=== PATIENT | male | born 1970 | race Caucasian/White ===

== ENCOUNTER 2018-09-14 14:26 | Emergency (ER) | payer SELFPAY ==
--- NOTE | 2018-09-14 14:46 | UC ---
Skin Complaint HPI - HPI Summary HPI Summary: tick behind left knee--if thinks it was there for about 24 hours+- removed this morning by patient - History of Current Complaint Chief Complaint: UCSkin Time Seen by Provider: 09/14/18 14:45 Stated Complaint: TICK BITE TO LT LEG Hx Obtained From: Patient Onset/Duration: Sudden Onset, Still Present Skin Exposure Onset/Duration: Days Ago - 1 Timing: Constant Current Severity: None Location: Discrete Aggravating Factor(s): Nothing Alleviating Factor(s): Nothing Associated Signs & Symptoms: Positive: Negative Related History: Insect Bite/Sting - Allergy/Home Medications Allergies/Adverse Reactions: Allergies Allergy/AdvReac Type Severity Reaction Status Date / Time erythromycin base Allergy Unknown Verified 09/14/18 14:48 Reaction Details PMH/Surg Hx/FS Hx/Imm Hx Previously Healthy: Yes - Family History Known Family History: Positive: None - Social History Occupation: Works From/At Home Lives: With Family Alcohol Use: None Substance Use Type: None Smoking Status (MU): Never Smoked Tobacco Have You Smoked in the Last Year: No - Immunization History Hx Tetanus, Diphtheria Vaccination: No Review of Systems All Other Systems Reviewed And Are Negative: Yes Constitutional: Positive: Negative Skin: Positive: Other - tick bite behind left knee Eyes: Positive: Negative ENT: Positive: Negative Respiratory: Positive: Negative Cardiovascular: Positive: Negative Gastrointestinal: Positive: Negative Genitourinary: Positive: Negative Motor: Positive: Negative Neurovascular: Positive: Negative Musculoskeletal: Positive: Negative Neurological: Positive: Negative Psychological: Positive: Negative Is Patient Immunocompromised?: No Physical Exam Triage Information Reviewed: Yes Appearance: Well-Appearing, No Pain Distress, Well-Nourished Vital Signs Reviewed: Yes Eye Exam: Normal Eyes: Positive: Conjunctiva Clear ENT Exam: Normal ENT: Positive: Normal ENT inspection. Negative: Trismus, Muffled voice, Hoarse voice Dental Exam: Normal Neck exam: Normal Neck: Positive: Supple, Nontender Respiratory Exam: Normal Respiratory: Positive: Chest non-tender, No respiratory distress, No accessory muscle use Cardiovascular Exam: Normal Cardiovascular: Positive: RRR, Pulses Normal, Brisk Capillary Refill Musculoskeletal Exam: Normal Musculoskeletal: Positive: Strength Intact, ROM Intact, No Edema Neurological Exam: Normal Neurological: Positive: Alert, Muscle Tone Normal Psychological Exam: Normal Skin: Positive: Other - tick bit behind left knee Course/Dx - Course Course Of Treatment: education and information provided for patient regarding hypertension and insurance options---patient will take doxycycline one time dose and follow with [facility] for bp management and assistance getting health care insurance - Diagnoses Provider Diagnosis: Hypertension, Tick bite, Recently in Lyme disease endemic area Discharge - Sign-Out/Discharge Documenting (check all that apply): Patient Departure All imaging exams completed and their final reports reviewed: No Studies - Discharge Plan Condition: Stable Disposition: HOME Prescriptions: DOXYcycline CAP(*) [DOXYcycline 100MG CAP(*)] 200 mg PO DAILY #2 cap Patient Education Materials: Lyme Disease (ED), Tick Bite (ED), DASH Eating Plan (ED), Hypertension (ED) Referrals: [facility] [Outside] - 7 Days (to get blood pressure rechecked and assistance with medications and treatment) - Billing Disposition and Condition Condition: STABLE Disposition: Home - Attestation Statements Provider Attestation: I was available for consult. This patient was seen by the REGI. The patient was not presented to , seen by or examined by -Leticia Lorenzo MD
== END 2018-09-14 15:21 | disposition home or self-care (01) ==
LOC: UCEAST 14:26
DX: T63.481A Toxic effect of venom of other arthropod, accidental (unintentional), initial encounter (principal); Y92.9 Unspecified place or not applicable; A69.20 Lyme disease, unspecified; I10 Essential (primary) hypertension
CPT/HCPCS: 99202; G0463

== ENCOUNTER 2019-12-17 10:51 | Inpatient (IN) ==
[2019-12-17 12:46] LABS: ALT 16 U/L (7-52); AST 23 U/L (13-39); Albumin 3.9 g/dL (3.2-5.2); Albumin/Globulin Ratio 1.4 (1-3); Alkaline Phosphatase 151 U/L (34-104); Anion Gap 11 mmol/L (2-11); BUN/Creatinine Ratio 11.5 (8-20); Blood Urea Nitrogen 13 mg/dL (6-24); CO2 Carbon Dioxide 31 mmol/L (22-32); Calcium 8.6 mg/dL (8.6-10.3); Chloride 99 mmol/L (101-111); EGFR African American 83.8 (>60); EGFR Non-African American 69.3 (>60); Globulin 2.7 g/dL (2-4); Glucose 95 mg/dL (70-100); Potassium 3.1 mmol/L (3.5-5.0); Sodium 141 mmol/L (135-145); Total Protein 6.6 g/dL (6.4-8.9)
[2019-12-17 13:06] LABS: C Reactive Protein 36.24 mg/L (<8.01)
[2019-12-17 13:13] LABS: ABS Basophils 0.1 10^3/ul (0-0.2); ABS Lymphocytes 0.8 10^3/ul (1.0-4.8); ABS Monocytes 1.1 10^3/ul (0-0.8); Eosinophil % 10.4 %; Hematocrit 47 % (42-52); Lymphocyte % 7.6 %; Mean Corpuscular HGB Conc 32 g/dL (31-36); Mean Corpuscular Hemoglobin 28 pg (27-31); Mean Corpuscular Volume 87 fL (80-94); Mean Platelet Volume 8.1 fL (7.4-10.4); Nucleated Red Blood Cells % 0.1; Platelet Count 361 10^3/uL (150-450); Red Blood Count 5.47 10^6 /uL (4.18-5.48); Red Cell Distribution Width 19 % (10-15)
[2019-12-17 13:37] LABS: Magnesium 1.7 mg/dL (1.9-2.7)
[2019-12-17] MEDS ORDERED: Furosemide 40 mg/4 ml IV VIAL IV ONE (13:45)
[2019-12-17] MEDS ORDERED: Magnesium Sulfate IV 1GM/100ML 1 GM/100 ML BAG IV ONE (13:52)
[2019-12-17] MEDS ORDERED: Potassium Chlor 20 meq TAB.ER PO ONE (13:52)
[2019-12-17] MEDS ORDERED: Potassium Chlor 20 meq TAB.ER PO SCH (14:00)
[2019-12-17] MEDS ORDERED: Magnesium Sulfate 2 gm BAG 2 GM/50 ML BAG IVPB ONE (14:00)
[2019-12-17 14:07] LABS: Troponin I 0.06 ng/mL (<0.03)
[2019-12-17] MEDS ORDERED: Perflutren Lipid Microsphere 3 ML VIAL ONE (15:02)
[2019-12-17 15:08] LABS: Urine Appearance Clear; Urine Bilirubin Negative (Negative); Urine Blood Negative (Negative); Urine Color Colorless; Urine Glucose Negative (Negative); Urine Ketones Negative (Negative); Urine Nitrite Negative (Negative); Urine Protein Negative (Negative); Urine Specific Gravity 1.003 (1.010-1.030); Urine Urobilinogen Negative (Negative)
[2019-12-17] MEDS: Enoxaparin 40 MG/0.4 ML SYR SUBCUT SCH (16:13)
[2019-12-17] MEDS: hydrALAZINE 20 mg/ml 1 ML Vial IV IV SLOW PU PRN ×2 (16:15→23:15)
[2019-12-17 18:07] LABS: Troponin I 0.05 ng/mL (<0.03)
[2019-12-17] MEDS ORDERED: Furosemide 40 mg/4 ml IV VIAL IV SCH (21:00)
[2019-12-17] MEDS: Nystatin TOP POWDER 15 GM BTL TOPICAL SCH (22:20)
[2019-12-18 06:36] LABS: ABS Basophils 0.1 10^3/ul (0-0.2); ABS Eosinophils 0.9 10^3/ul (0-0.6); ABS Lymphocytes 0.5 10^3/ul (1.0-4.8); ABS Neutrophils 6.7 10^3/ul (1.5-7.7); Eosinophil % 10.1 %; Hematocrit 46 % (42-52); Hemoglobin 15.3 g/dL (14.0-18.0); Lymphocyte % 5.8 %; Mean Corpuscular HGB Conc 33 g/dL (31-36); Mean Corpuscular Hemoglobin 29 pg (27-31); Mean Corpuscular Volume 86 fL (80-94); Mean Platelet Volume 7.6 fL (7.4-10.4); Platelet Count 326 10^3/uL (150-450); Red Blood Count 5.36 10^6 /uL (4.18-5.48); Red Cell Distribution Width 19 % (10-15); White Blood Count 9.3 10^3/uL (3.5-10.8)
[2019-12-18 06:52] LABS: BUN/Creatinine Ratio 10.1 (8-20); Calcium 9.1 mg/dL (8.6-10.3); EGFR African American 87.4 (>60); EGFR Non-African American 72.2 (>60); Magnesium 1.8 mg/dL (1.9-2.7); Potassium 3.3 mmol/L (3.5-5.0)
[2019-12-18] MEDS ORDERED: Potassium Chlor 20 meq TAB.ER PO ONE (08:30)
[2019-12-18] MEDS ORDERED: Magnesium Sulfate IV 1GM/100ML 1 GM/100 ML BAG IV ONE (09:00)
[2019-12-18] MEDS: Furosemide 40 mg/4 ml IV VIAL IV SCH ×2 (09:32→15:16)
[2019-12-18] MEDS: Nystatin TOP POWDER 15 GM BTL TOPICAL SCH ×2 (11:20→21:09)
[2019-12-18] MEDS: Enoxaparin 40 MG/0.4 ML SYR SUBCUT SCH (15:16)
[2019-12-19] MEDS ORDERED: Furosemide 20 mg/2 ml IV VIAL IV SLOW PU ONE (08:39)
[2019-12-19] MEDS: Furosemide 40 mg/4 ml IV VIAL IV SCH ×2 (08:40→15:32)
[2019-12-19] MEDS ORDERED: Potassium Chlor 20 meq TAB.ER PO SCH (09:00)
[2019-12-19] MEDS: Nystatin TOP POWDER 15 GM BTL TOPICAL SCH ×2 (09:13→22:01)
[2019-12-19 10:15] LABS: ABS Basophils 0.1 10^3/ul (0-0.2); ABS Eosinophils 1.4 10^3/ul (0-0.6); ABS Lymphocytes 0.6 10^3/ul (1.0-4.8); ABS Monocytes 0.7 10^3/ul (0-0.8); Eosinophil % 15.7 %; Hematocrit 47 % (42-52); Hemoglobin 15.3 g/dL (14.0-18.0); Lymphocyte % 6.7 %; Mean Corpuscular HGB Conc 32 g/dL (31-36); Mean Corpuscular Hemoglobin 28 pg (27-31); Mean Corpuscular Volume 86 fL (80-94); Mean Platelet Volume 7.6 fL (7.4-10.4); Platelet Count 329 10^3/uL (150-450); Red Cell Distribution Width 19 % (10-15); White Blood Count 8.7 10^3/uL (3.5-10.8)
[2019-12-19 10:35] LABS: BUN/Creatinine Ratio 11.9 (8-20); Calcium 9.3 mg/dL (8.6-10.3); EGFR African American 87.4 (>60); EGFR Non-African American 72.2 (>60); Magnesium 1.6 mg/dL (1.9-2.7); Potassium 3.2 mmol/L (3.5-5.0)
[2019-12-19] MEDS: Enoxaparin 40 MG/0.4 ML SYR SUBCUT SCH (15:32)
[2019-12-19] MEDS ORDERED: Magnesium Sulfate 2 gm BAG 2 GM/50 ML BAG IVPB ONE (15:33)
[2019-12-19] MEDS: Potassium Chlor 20 meq TAB.ER PO SCH (15:49)
[2019-12-20] MEDS: Potassium Chlor 20 meq TAB.ER PO SCH (08:07)
[2019-12-20] MEDS: Furosemide 40 mg/4 ml IV VIAL IV SCH ×2 (08:08→15:03)
[2019-12-20] MEDS: Nystatin TOP POWDER 15 GM BTL TOPICAL SCH ×2 (08:08→20:57)
[2019-12-20 09:48] LABS: ABS Basophils 0.1 10^3/ul (0-0.2); ABS Eosinophils 1.3 10^3/ul (0-0.6); ABS Lymphocytes 0.7 10^3/ul (1.0-4.8); ABS Monocytes 0.7 10^3/ul (0-0.8); Eosinophil % 14.6 %; Hematocrit 46 % (42-52); Hemoglobin 15.4 g/dL (14.0-18.0); Lymphocyte % 8.1 %; Mean Corpuscular HGB Conc 33 g/dL (31-36); Mean Corpuscular Hemoglobin 29 pg (27-31); Mean Corpuscular Volume 86 fL (80-94); Mean Platelet Volume 7.8 fL (7.4-10.4); Platelet Count 357 10^3/uL (150-450); Red Blood Count 5.42 10^6 /uL (4.18-5.48); Red Cell Distribution Width 19 % (10-15); White Blood Count 8.8 10^3/uL (3.5-10.8)
[2019-12-20 10:05] LABS: BUN/Creatinine Ratio 15.2 (8-20); Calcium 9.4 mg/dL (8.6-10.3); EGFR African American 97.6 (>60); EGFR Non-African American 80.7 (>60); Magnesium 1.6 mg/dL (1.9-2.7); Potassium 3.4 mmol/L (3.5-5.0)
[2019-12-20] MEDS ORDERED: Magnesium Sulfate 2 gm BAG 2 GM/50 ML BAG IVPB ONE (10:11)
[2019-12-20] MEDS: Enoxaparin 40 MG/0.4 ML SYR SUBCUT SCH (15:03)
[2019-12-21 06:53] LABS: CO2 Carbon Dioxide 28 mmol/L (22-32); Chloride 94 mmol/L (101-111); Sodium 133 mmol/L (135-145)
[2019-12-21 06:56] LABS: Anion Gap 11 mmol/L (2-11)
[2019-12-21 06:58] LABS: BUN/Creatinine Ratio 17.6 (8-20); Blood Urea Nitrogen 18 mg/dL (6-24); EGFR African American 94.3 (>60); Glucose 93 mg/dL (70-100)
[2019-12-21] MEDS ORDERED: Regadenoson 0.4 MG/5 ML SYRINGE ONE (07:52)
[2019-12-21] MEDS ORDERED: Aminophylline 25 MG/ML VIAL ONE (07:53)
[2019-12-21] MEDS: Furosemide 40 mg/4 ml IV VIAL IV SCH ×2 (10:39→14:56)
[2019-12-21] MEDS: Potassium Chlor 20 meq TAB.ER PO SCH (10:40)
[2019-12-21] MEDS: Nystatin TOP POWDER 15 GM BTL TOPICAL SCH ×2 (10:40→21:01)
[2019-12-21 11:15] LABS: Potassium 3.8 mmol/L (3.5-5.0)
[2019-12-21] MEDS: Enoxaparin 40 MG/0.4 ML SYR SUBCUT SCH (14:56)
[2019-12-22 06:10] LABS: BUN/Creatinine Ratio 16.8 (8-20); Calcium 9.6 mg/dL (8.6-10.3); EGFR African American 89.3 (>60); EGFR Non-African American 73.8 (>60); Potassium 3.6 mmol/L (3.5-5.0)
[2019-12-22] MEDS: Potassium Chlor 20 meq TAB.ER PO SCH (07:58)
[2019-12-22] MEDS: Furosemide 40 mg/4 ml IV VIAL IV SCH (08:03)
[2019-12-22] MEDS: Nystatin TOP POWDER 15 GM BTL TOPICAL SCH ×2 (08:08→20:43)
[2019-12-22 08:30] LABS: Magnesium 1.9 mg/dL (1.9-2.7)
[2019-12-22 09:04] LABS: HDL Cholesterol 22.8 mg/dL
[2019-12-22 09:42] LABS: Albumin 4.1 g/dL (3.2-5.2); Albumin/Globulin Ratio 1.3 (1-3); BUN/Creatinine Ratio 15.9 (8-20); Calcium 10.2 mg/dL (8.6-10.3); EGFR African American 89.3 (>60); EGFR Non-African American 73.8 (>60); Globulin 3.1 g/dL (2-4); Potassium 3.8 mmol/L (3.5-5.0); Total Bilirubin 1.6 mg/dL (0.2-1.0); Total Protein 7.2 g/dL (6.4-8.9)
[2019-12-22] MEDS: Enoxaparin 40 MG/0.4 ML SYR SUBCUT SCH (15:48)
[2019-12-22] MEDS: Bumetanide IV 0.25 MG/ML 4 ml VIAL (1 mg) SLOW PUSH SCH ×2 (16:55→20:39)
[2019-12-23 07:34] LABS: INR 1.2 (0.82-1.09)
[2019-12-23 08:31] LABS: Albumin 4.2 g/dL (3.2-5.2); Calcium 10.2 mg/dL (8.6-10.3); Chloride 88 mmol/L (101-111); Sodium 139 mmol/L (135-145)
[2019-12-23 08:37] LABS: ALT 18 U/L (7-52); Albumin/Globulin Ratio 1.4 (1-3); Alkaline Phosphatase 155 U/L (34-104); Blood Urea Nitrogen 20 mg/dL (6-24); EGFR African American 96.5 (>60); EGFR Non-African American 79.8 (>60); Globulin 2.9 g/dL (2-4); Glucose 101 mg/dL (70-100); Total Protein 7.1 g/dL (6.4-8.9)
[2019-12-23] MEDS: Potassium Chlor 20 meq TAB.ER PO SCH (08:52)
[2019-12-23] MEDS: Bumetanide IV 0.25 MG/ML 4 ml VIAL (1 mg) SLOW PUSH SCH ×2 (08:52→20:35)
[2019-12-23] MEDS: Nystatin TOP POWDER 15 GM BTL TOPICAL SCH ×2 (08:59→20:36)
[2019-12-23 09:15] LABS: Anion Gap 15 mmol/L (2-11); CO2 Carbon Dioxide 36 mmol/L (22-32)
[2019-12-23] MEDS: Enoxaparin 40 MG/0.4 ML SYR SUBCUT SCH (15:56)
[2019-12-23] MEDS: Bacitracin OINTMENT TUBE TOPICAL SCH (20:35)
[2019-12-24] MEDS: Potassium Chlor 20 meq TAB.ER PO SCH (08:31)
[2019-12-24] MEDS: Bacitracin OINTMENT TUBE TOPICAL SCH ×2 (08:32→20:58)
[2019-12-24] MEDS: Bumetanide IV 0.25 MG/ML 4 ml VIAL (1 mg) SLOW PUSH SCH (08:32)
[2019-12-24] MEDS: Nystatin TOP POWDER 15 GM BTL TOPICAL SCH ×2 (08:39→20:58)
[2019-12-24 09:28] LABS: BUN/Creatinine Ratio 20.9 (8-20); Calcium 10.4 mg/dL (8.6-10.3); EGFR African American 68.8 (>60); EGFR Non-African American 56.9 (>60); Potassium 3.4 mmol/L (3.5-5.0)
[2019-12-24] MEDS: Enoxaparin 40 MG/0.4 ML SYR SUBCUT SCH (16:17)
[2019-12-24] MEDS ORDERED: Potassium Chlor 20 meq TAB.ER PO ONE (17:51)
[2019-12-25 06:47] LABS: BUN/Creatinine Ratio 20.6 (8-20); Calcium 9.9 mg/dL (8.6-10.3); EGFR African American 52.3 (>60); EGFR Non-African American 43.2 (>60); Potassium 3.9 mmol/L (3.5-5.0)
[2019-12-25] MEDS: Potassium Chlor 20 meq TAB.ER PO SCH (07:53)
[2019-12-25] MEDS: Nystatin TOP POWDER 15 GM BTL TOPICAL SCH ×2 (07:57→21:33)
[2019-12-25] MEDS: Bacitracin OINTMENT TUBE TOPICAL SCH ×2 (07:57→21:33)
[2019-12-25 13:42] LABS: Albumin/Globulin Ratio 1.2 (1-3); Globulin 3.3 g/dL (2-4); Indirect Bilirubin 0.9 mg/dL (0.3-1.0); Total Bilirubin 1.2 mg/dL (0.2-1.0); Total Protein 7.3 g/dL (6.4-8.9)
[2019-12-25 15:27] LABS: Albumin 3.2 g/dL (3.4-4.7); Albumin/Globulin Ratio 0.76; Gamma Globulin 1.4 g/dL (0.6-1.6); Total Protein(PEP) 7.4 g/dL (6.3 - 7.9)
[2019-12-25] MEDS: Enoxaparin 40 MG/0.4 ML SYR SUBCUT SCH (17:00)
[2019-12-25 17:30] LABS: BUN/Creatinine Ratio 22.9 (8-20); Calcium 10.6 mg/dL (8.6-10.3); EGFR African American 49.3 (>60); EGFR Non-African American 40.7 (>60); Potassium 3.9 mmol/L (3.5-5.0)
[2019-12-26 06:50] LABS: BUN/Creatinine Ratio 25.8 (8-20); Calcium 10.4 mg/dL (8.6-10.3); EGFR Non-African American 49.6 (>60); Potassium 3.9 mmol/L (3.5-5.0)
[2019-12-26] MEDS: Potassium Chlor 20 meq TAB.ER PO SCH (10:08)
[2019-12-26] MEDS: Bacitracin OINTMENT TUBE TOPICAL SCH ×2 (10:10→21:19)
[2019-12-26] MEDS: Nystatin TOP POWDER 15 GM BTL TOPICAL SCH ×2 (10:10→21:18)
[2019-12-26] MEDS: Enoxaparin 40 MG/0.4 ML SYR SUBCUT SCH (16:41)
[2019-12-27] MEDS: Potassium Chlor 20 meq TAB.ER PO SCH (09:05)
[2019-12-27] MEDS: Bacitracin OINTMENT TUBE TOPICAL SCH (09:06)
[2019-12-27] MEDS: Nystatin TOP POWDER 15 GM BTL TOPICAL SCH (09:06)
[2019-12-27 11:19] VITALS: BP 129/84
[2019-12-30 10:35] LABS: Albumin 71 %; Albumin/Globulin Ratio 2.46 %; Gamma Globulin 10 %; Total Protein(PEP) Urine 29 mg/dL
== END 2019-12-27 15:21 | disposition home or self-care (01) | DRG 194 ==
LOC: ED 10:51 → MEDTELE 14:23
PROVIDERS: ADMIT Student in an Organized Health Care Education/Training Program; ATTEND Internal Medicine